=== PATIENT | male | born 1960 | race Hispanic/Latino ===

== ENCOUNTER 2017-07-27 11:19 | Emergency (ER) | payer SELFPAY ==
[2017-07-27] MEDS ORDERED: Ketorolac Tromethamine 30 MG/ML VIAL ONE (12:04)
[2017-07-27] MEDS ORDERED: Clindamycin/D5W 900 mg/50 ml Premix Bag ONE (12:04)
[2017-07-27] MEDS ORDERED: Dexamethasone 4 mg/ml Vial ONE (12:05)
[2017-07-27 12:09] LABS: Hemoglobin 14.4 g/dL (14.0-18.0); Mean Corpuscular HGB CONC 33.3 g/dL (32.0-36.0); Mean Corpuscular Hemoglobin 29.9 pg (27.0-31.0); Mean Corpuscular Volume 89.7 fl (80.0-94.0); Mean Platelet Volume 7.7 fL (7.4-10.4); Platelet Count 295 thou/uL (130-400); RBC Distribution Width 12.1 % (11.5-14.5); Red Blood Cell (RBC) Count 4.82 mill/uL (4.70-6.10); White Blood Cell (WBC) Count 29.7 thou/uL (4.8-10.8)
[2017-07-27 12:19] LABS: INR-International Normal Ratio 1.1; PTT 34.6 SEC (22.9-36.1); Prothrombin Time 13.9 SEC (12.0-14.7)
[2017-07-27 12:30] LABS: ALT (SGPT) 24 U/L (8-55); AST (SGOT) 15 U/L (5-34); Albumin 4.5 g/dL (3.5-5.0); Alkaline Phosphatase 128 U/L (40-150); Anion Gap 13 mmol/L (10-20); BUN (Urea Nitrogen) 9 mg/dL (8.4-25.7); Bilirubin, Total 0.7 mg/dL (0.2-1.2); CK (CPK) 37 U/L (30-200); Calc. Creatinine Clearance 0 mL/min (70-130); Carbon Dioxide 25 mmol/L (22-29); Chloride 101 mmol/L (98-107); Estimated GFR-MDRD Greater than 90; Globulin 4.5 g/dL (2.4-3.5); Glucose 247 mg/dL (70-105); Potassium 3.9 mmol/L (3.5-5.1); Sodium 135 mmol/L (136-145)
[2017-07-27 12:32] LABS: Band 17 % (5-11); Lymphocytes 7 % (21-51); MDiff Complete? YES; Monocytes 7 % (0-10); Neutrophil 65 % (42-75); RBC Morphology Normal; Reactive Lymphocytes 3 % (0-10)
--- NOTE | 2017-07-27 13:02 | RAD ---
FRONTAL VIEW CHEST: Comparison: None. History: Throat pain. FINDINGS: No lobar consolidation, effusion or pneumothorax. Cardiac silhouette is within normal limits in size. IMPRESSION: No focal consolidation. POS: [facility]
--- NOTE | 2017-07-27 13:06 | CT ---
CT NECK WITH CONTRAST: INDICATIONS: Neck pain. Difficulty speaking. FINDINGS: There is a large, heterogeneous, hypodense collection centered at the left palatine tonsil with assoc iated effacement of the oropharyngeal airway. Internal linear hyperdensity suggests probable develop ing septation. Axial dimensions of the left palatine hypodensity are approximately 2.4 x 2.2 cm. Th ere is adjacent left parapharyngeal soft tissue edema. There is effacement of the left piriform sinu s. Retained secretions are seen at the dependent aspect of the hypopharyngeal airway. No obvious fi lling defect within the tracheal air column. There is mild redundancy of the posterior aspect of the right vocal cord. Motion artifact does limit assessment at the level of the glottis. There is no d iscrete thyroid lesion. The submandibular and parotid glands are grossly unremarkable. There is gordo ateral adenopathy, more notable on the left, within left level I-B, measuring slightly greater than 2 cm in diameter. There is a right posterior paratracheal air density, with internal septations. This could relate to a tracheal diverticulum, although it is somewhat atypical, given internal septations. IMPRESSION: Large complex left palatine tonsillar fluid collection, compatible with abscess, which does efface th e oropharyngeal airway. There is surrounding parapharyngeal edema, as well as inferior mass effect u tr the hypopharyngeal airway effacing the left piriform sinus. There are retained secretions of the hypopharyngeal airway. Recommend ENT consultation for further assessment. POS: [facility]
[2017-07-27] MEDS ORDERED: Lidocaine 1% (PF) 30 ML VIAL ONE (13:13)
[2017-07-27] MEDS ORDERED: Bicillin LA 2.4 MILL.UNITS/4 ML SYRINGE ONE (13:37)
== END 2017-07-27 14:19 | disposition home or self-care (01) ==
LOC: ERS 11:19
DX: J36 Peritonsillar abscess (principal)
CPT/HCPCS: 36415; 70491; 71045; 80053; 82550; 83605; 85025; 85610; 85730; 86850; 86900; 86901; 87040; 87430; 93005; J0561; J1100; J1885; J2001; J3490